=== PATIENT | female | born 2000 | race Caucasian/White ===

== ENCOUNTER 2019-09-22 15:04 | Emergency (ER) | payer MEDICAID, SELFPAY ==
[~2019-09-22] VITALS: Ht 160 cm; Wt 49.9 kg
[2019-09-22 15:11] VITALS: BP 121/55
--- NOTE | 2019-09-22 15:13 | NUR ---
Pt placed in tent for covid precautions
--- NOTE | 2019-09-22 15:15 | NUR ---
18 y/o female from home c/o sore throat and productive cough x 1 wk. pt states she came to er to be tested for covid due to possible + interaction. 4/10 aching to throat. rr even and unlabored, no signs of respiratory distress. awake and alert. afebrile at this time. medhx: denies
--- NOTE | 2019-09-22 15:29 | NUR ---
covid 19 swab collected from pt
[2019-09-22 15:46] VITALS: BP 121/55
--- NOTE | 2019-09-22 15:47 | NUR ---
Patient discharged with v/s stable. Written and verbal after care instructions given and explained. Patient alert, oriented and verbalized understanding of instructions. Ambulatory with steady gait. All questions addressed prior to discharge. ID band removed. Patient advised to follow up with PMD. Rx of robitussin 10mg and acetaminohpen 500mg given. Patient educated on indication of medication including possible reaction and side effects. Opportunity to ask questions provided and answered.
== END 2019-09-22 15:47 | disposition home or self-care (01) ==
LOC: EEVIPCON 15:04 → MED 15:04
DX: B34.9 Viral infection, unspecified (principal); Z20.828 Contact with and (suspected) exposure to other viral communicable diseases
CPT/HCPCS: 99283; U0003